=== PATIENT | female | born 1970 | race Caucasian/White ===

== ENCOUNTER 2020-06-22 12:42 | Emergency (ER) | payer OTHER ==
[~2020-06-22] VITALS: Ht 205.7 cm; Wt 113.4 kg
[~2020-06-22 12:42] MED LIST: GABAPENTIN800 MG PO; TRAMADOL HCL50 MG PO
[2020-06-22 13:02] LABS: BASO % 0.2 % (0.0-1.0); EOS # 0.1 10*3/uL (0.0-0.4); EOS % 1.2 % (1.0-4.0); LYMPH # 2.2 10*3/uL (1.3-4.4); LYMPH % 24.9 % (27.0-41.0); MEAN CELL VOLUME 85.3 fl (81.0-99.0); MEAN CORPUSCULAR HGB 27.3 pg (27.0-31.0); MEAN PLATELET VOLUME 9.8 fl (9.6-12.3); MONO # 0.5 10*3/uL (0.1-1.0); MONO % 5.7 % (3.0-9.0); NEUT % 67.5 % (47.0-73.0); PLATELET COUNT AUTOMATED 212 10*3/uL (130-400); RED BLOOD COUNT 5.16 10*6/uL (4.10-5.10); RED CELL DISTRI WIDTH 12.5 % (0-14.5); WHITE BLOOD COUNT 8.8 10*3/uL (4.8-10.8)
[2020-06-22 13:20] LABS: ACT PARTIAL THROMBO TIME 25.4 SECONDS (20.0-32.1); ALBUMIN 3.5 gm/dl (3.1-4.5); ALKALINE PHOSPHATASE 130 U/L (45-117); BUN 15 mg/dl (7-24); CHLORIDE 109 mmol/L (98-107); CREATININE 0.72 mg/dL (0.55-1.02); SGOT/AST 9 IU/L (3-35); SGPT/ALT 25 U/L (12-78); SODIUM 141 mmol/L (136-145); TOTAL PROTEIN 7.1 gm/dL (6.4-8.2)
[2020-06-22 13:21] LABS: TROPONIN I < 0.015 ng/ml (<0.045)
[2020-06-22 14:23] VITALS: BP 124/79
== END 2020-06-22 14:55 | disposition home or self-care (01) ==
LOC: ED 12:42
PROVIDERS: Emergency Medicine
DX: R07.89 Other chest pain (principal); Z88.0 Allergy status to penicillin